=== PATIENT | male | born 1950 | race Caucasian/White ===

== ENCOUNTER 2022-07-02 08:55 | Emergency (ER) | payer OTHER ==
[~2022-07-02] VITALS: Ht 172.7 cm; Wt 72.6 kg
[2022-07-02 09:01] VITALS: BP_SYST 163
--- NOTE | 2022-07-02 09:01 | NUR ---
Patient to ER bed 08 to gown for evaluation. Side rails up.
--- NOTE | 2022-07-02 09:02 | NUR ---
Pt brought by self,A&Ox4, pt presents to ER with L arm pain and bruising after carrying a water container, pt is on blood thinners, VSS, skin pink and warm, respirations even and unlabored.
--- NOTE | 2022-07-02 09:07 | NUR ---
Dr Devi evaluating patient at bedside
--- NOTE | 2022-07-02 09:54 | NUR ---
Applied a left hand velcro splint.
[2022-07-02 10:25] VITALS: BP_SYST 163
--- NOTE | 2022-07-02 10:26 | NUR ---
Patient given written and verbal discharge instructions and verbalizes understanding. ER MD discussed with patient the results and treatment provided. Patient in stable condition. ID arm band removed. No Rx given. Patient educated on pain management and to follow up with PMD. Pain Scale 0/10. Opportunity for questions provided and answered. Medication side effect fact sheet provided.
== END 2022-07-02 10:26 | disposition home or self-care (01) ==
LOC: SED 08:55
DX: S66.812A Strain of other specified muscles, fascia and tendons at wrist and hand level, left hand, initial encounter (principal); Z79.899 Other long term (current) drug therapy; W22.8XXA Striking against or struck by other objects, initial encounter; Y93.89 Activity, other specified; Y92.89 Other specified places as the place of occurrence of the external cause; Y99.8 Other external cause status
CPT/HCPCS: 73090; 99283